=== PATIENT | male | born 1995 | race African-American/Black ===

== ENCOUNTER 2017-04-14 10:12 | Emergency (ER) | payer BC ==
[~2017-04-14] VITALS: Ht 170.2 cm; Wt 72.6 kg
--- NOTE | ~2017-04-14 | CR4 ---
[facility] A Service of [facility] RADIOLOGY TEXT RESULTS PATIENT: BREANN AMAYA LOCATION: [place] : [birth year] UNIT #: [id number] AGE: [address]: Tegan Hudson SEX: M ORDER DR: [id number] [place], [place] [address] [id number] E MR#: [id number] Acc #: [id number] NAME: BREANN AMAYA : 1995 SEX: M STUDY DATE/TIME: 04/14/2017 11:27 UNIT: [facility] ROOM: STUDY DESCRIPTION: CR Abdomen Flat Upright or Dec Attending Physician: Tegan Hudson Pa-C Ordering Physician: Ed Kraig Jack M.D. Primary Care Physician: Generic Doctor Not In System MEDICAL IMAGING REPORT This report is preliminary unless electronic signature is present EXAM Abdomen supine and upright 04/14/2017 1127 hours CLINICAL HISTORY 21-year-old man with chest pain, wheezing, cough and abdominal pain. Abdominal pain began 3 weeks ago with new onset chest pain last night. COMPARISON None. FINDINGS Supine and upright views of the abdomen demonstrate a nonspecific bowel gas pattern. There is no obstruction, free air, or suspicious calcification. There is moderate stool distending the rectum to transverse diameter 7.6 cm. Increase stool is not seen elsewhere. IMPRESSION 1. No bowel obstruction or free air. 2. There is stool distending the rectum to 7.6 cm. Stool burden elsewhere in the colon is not significantly increased. No suspicious calcifications. Dictated by... Milagros Doll M.D. THIS IS AN ELECTRONICALLY VERIFIED REPORT Milagros Doll M.D. at 04/14/2017 7:05 PM RAY/suzanne TD: 04/14/2017 16:23 JOB #: [id number] [facility] A Service of [facility] RADIOLOGY TEXT RESULTS PATIENT: BREANN AMAYA LOCATION: [place] : [birth year] UNIT #: [id number] AGE: [address]: Tegan Hudson SEX: M ORDER DR: MEDICAL IMAGING REPORT Page 1 of 1 COPY
--- NOTE | ~2017-04-14 | CR63 ---
[facility] A Service of [facility] RADIOLOGY TEXT RESULTS PATIENT: BREANN AMAYA LOCATION: [facility] : [birth year] UNIT #: [id number] AGE: [address]: Tegan Hudson SEX: M ORDER DR: [id number] [facility] [address] [place], [place] [address] [id number] E MR#: [id number] Acc #: [id number] NAME: BREANN AMAYA : 1995 SEX: M STUDY DATE/TIME: 04/14/2017 11:27 UNIT: [facility] ROOM: STUDY DESCRIPTION: CR Chest 2 View Attending Physician: Tegan Hudson Pa-C Ordering Physician: Ed Doc Jesús Jack Primary Care Physician: Generic Doctor Not In System MEDICAL IMAGING REPORT This report is preliminary unless electronic signature is present EXAM Chest 2 views 04/14/2017 1127 hours HISTORY 21-year-old complaining of chest pain, wheezing and cough since last night with 3-week history of abdominal pain. COMPARISON None. FINDINGS PA and lateral views of the chest demonstrate normal cardiac, mediastinal and hilar contours. Lungs are hyperinflated with calcified granulomata at the right base. There is no acute pulmonary density or pleural effusion. IMPRESSION Pulmonary hyperinflation with benign calcified granulomatous changes. No acute cardiopulmonary findings. Dictated by... Milagros Doll M.D. THIS IS AN ELECTRONICALLY VERIFIED REPORT Milagros Doll M.D. at 04/14/2017 7:05 PM RAY/leon TD: 04/14/2017 16:20 JOB #: [id number] MEDICAL IMAGING REPORT Page 1 of 1 COPY
[~2017-04-14 10:12] MED LIST: ALLERGY SHOTS; IBUPROFEN PO; [UNRECOGNIZED DRUG - OTHER]
[2017-04-14 13:02] LABS: BASOPHIL% 0.6 % (0-2.5); EOSINOPHIL# 0.1 X10e3 (0-0.7); EOSINOPHIL% 1.7 % (0.0-7.0); HEMATOCRIT 45.3 % (38.0-50.0); HEMOGLOBIN 15.2 gm/dL (13.0-16.0); LYMPHOCYTE# 1.8 X10e3 (1.0-3.5); LYMPHOCYTE% 31.3 % (17.0-45.0); MEAN CELL VOLUME 88.6 FL (83-96); MEAN CORPUSCULAR HEMOGLOBIN 29.8 PG (28-34); MEAN CORPUSCULAR HGB CONC 33.6 g/dL (30-36); MEAN PLATELET VOLUME 8.7 FL (6.5-11.5); MONOCYTE# 0.5 X10e3 (0-1.0); MONOCYTE% 9.3 % (3.0-12.0); NEUTROPHIL# 3.3 X10e3 (1.5-7.1); NEUTROPHIL% 57.1 % (40-75); PLATELET COUNT 225 X10e3 (140-420); RED BLOOD COUNT 5.12 X10e (3.90-5.60); RED CELL DISTRIBUTION WIDTH 13.3 % (11.0-15.5); WHITE BLOOD COUNT 5.7 X10e3 (4.0-10.5)
[2017-04-14 13:04] LABS: DIFF IND NO
[2017-04-14 13:35] LABS: ALBUMIN SERUM 4.7 g/dL (3.5-5.0); BILIRUBIN,TOTAL 0.6 mg/dL (0.2-2.0); CALCIUM SERUM 9.7 mg/dL (8.4-10.2); GLOM FILT RATE Estimated 123.3 mL/min (>60); POTASSIUM 4.4 mmol/L (3.5-5.1); PROTEIN TOTAL SERUM 7.8 g/dL (6.0-8.3)
== END 2017-04-14 13:55 | disposition home or self-care (01) ==
LOC: CFTX 10:12 → CED 10:12 → CFTX 10:37
PROVIDERS: Physician Assistant
DX: K59.00 Constipation, unspecified (principal); F17.200 Nicotine dependence, unspecified, uncomplicated; Z91.013 Allergy to seafood; Z91.018 Allergy to other foods
CPT/HCPCS: 71020; 74020; 80053; 85025; 99285